=== PATIENT | male | born 1945 | race Caucasian/White ===

== ENCOUNTER 2020-12-08 23:04 | Emergency (ER) | payer MEDICARE, SELFPAY ==
--- NOTE | ~2020-12-08 | CT_ITS ---
EXAMINATION: CTA chest PE protocol DATE: 12/09/2020 00:25 INDICATION: Dyspnea with exertion TECHNIQUE: Computed tomography (CT) pulmonary angiogram of the chest was performed with 100 mL Omnipa que-350 intravenous contrast. Additional 3D reconstructions utilizing coronal maximum intensity proje ction (MIP) were performed. Automated exposure control and iterative reconstruction technique were em ployed. The dose-length product was 1125.65 mGy-cm. COMPARISON: None FINDINGS: Good contrast opacification of the pulmonary arteries. There is moderate streak artifact from dense c ontrast in the superior vena cava and right atrium. Mild scattered respiratory motion artifact. No de finite pulmonary embolism with sensitivity mildly decreased in the segmental pulmonary arteries and m ore significantly decreased in the smaller subsegmental pulmonary arteries. Elevation of right hemidi aphragm with compressive atelectasis along the basilar right middle and lower lobes. Couple calcified right apical nodules along with calcified right hilar and mediastinal lymph nodes consistent with ol d granulomatous disease. Left lung remains clear. No pneumonia, pulmonary edema, pleural effusion or pneumothorax. Heart size is normal. Postoperative change of prior median sternotomy and coronary betty ry bypass grafting. Thoracic aorta is normal in caliber with no dissection. No pathologically enlarge d thoracic lymphadenopathy. Multiple parapelvic cysts in the right kidney. There are couple low-atten uation cyst at the lower pole of the left kidney the larger measuring 2.4 cm. In addition there is an indeterminant 4.5 cm intermediate attenuation exophytic lesion at the left kidney which could repres ent either complex cyst or solid neoplasm. There is soft tissue swelling and a postoperative gas abou t the right shoulder where there is a reverse total shoulder arthroplasty reportedly placed one day p rior. Moderate thoracic spondylosis with bridging osteophytes at multiple levels consistent with diff use idiopathic skeletal hyperostosis (DISH). Bilateral old rib fractures. IMPRESSION: 1. No pulmonary embolism. Sensitivity mildly decreased the segmental pulmonary arteries and more sign ificantly decreased in some of the smaller subsegmental pulmonary arteries due to combination of stre ak and motion artifact. 2. Elevation of the right hemidiaphragm with basilar atelectasis in the right middle and lower lobes. 3. Indeterminate 4.5 cm exophytic left renal lesion statistically most likely to represent a complex proteinaceous/hemorrhagic cyst but differential would include solid neoplasm. Recommend follow-up pre and postcontrast MRI or CT for further evaluation. Reviewed, dictated and finalized at location A. EDITATION MANAGER IMPRESSION: 1. No pulmonary embolism. Sensitivity mildly decreased the segmental pulmonary arteries and more significantly decreased in some of the smaller subsegmental p ulmonary arteries due to combination of streak and motion artifact. 2. Elevation of the right hemidiaphragm with basilar atelectasis in the right m iddle and lower lobes. 3. Indeterminate 4.5 cm exophytic left renal lesion statistically most likely t o represent a complex proteinaceous/hemorrhagic cyst but differential would inc lude solid neoplasm. Recommend follow-up pre and postcontrast MRI or CT for fur ther evaluation.
--- NOTE | ~2020-12-08 | XR_ITS ---
EXAMINATION: XR chest 2V DATE: 12/09/2020 00:12 INDICATION: Shortness of breath TECHNIQUE: PA and lateral views of the chest were obtained. COMPARISON: Chest CT dated 12/09/2020 FINDINGS: Elevation of the right hemidiaphragm with right basilar atelectasis. Left lung remains clear. Calcifi ed nodules in the right upper lung zone and calcified right hilar lymph nodes consistent with old gra nulomatous disease. No pleural effusion or pneumothorax. The cardiomediastinal silhouette is normal. Median sternotomy wires and mediastinal surgical clips are seen, likely from prior coronary artery by pass grafting. Reverse right total shoulder arthroplasty. Multiple old bilateral rib fractures. IMPRESSION: 1. Elevation the right hemidiaphragm with right basilar atelectasis. Reviewed, dictated and finalized at location A. HIC ARTS TECHNICIAN
[2020-12-08 23:04] VITALS: BP 165/73; PULSE 91; RESP 18; TEMP 36.7; O2SAT 95
--- NOTE | 2020-12-08 23:09 | ECG_ITS ---
Measurements Intervals [place] Rate: 79 P: 58 OR: 140 QRS: 34 QRSD: 97 T: 30 QT: 342 QTc: 393 Interpretive Statements SINUS RHYTHM FREQUENT VENTRICULAR PREMATURE COMPLEXES NONSPECIFIC T-WAVE ABNORMALITY- INFERIOR LEADS BASELINE ARTIFACT- I, III, V3-V5 ABNORMAL ECG Electronically Signed On 12-09-2020 6:48:38 PHYSICIAN RELATIONS SPECIALIST by Brandin Vitale D.O.
[2020-12-08 23:13] VITALS: PULSE 84; RESP 20; O2SAT 97
[2020-12-08 23:15] VITALS: PULSE 89; RESP 20; O2SAT 97
[2020-12-08 23:20] VITALS: PULSE 85
[2020-12-08 23:35] LABS: Basophils Absolute Auto 0.1 K/mm3 (0.0-0.1); Basophils Percent Auto 0.4 % (0.2-1.2); Eosinophils Absolute Auto 0.2 K/mm3 (0-0.3); Eosinophils Percent Auto 1.3 % (0-4.4); Hematocrit 40.8 % (42.0-52.0); Hemoglobin 13.5 g/dL (14.0-18.0); Immature Granulocyte Absolute 0.05 K/mm3 (0.00-0.031); Immature Granulocyte Percent A 0.4 % (0-0.5); Lymphocytes Absolute Auto 1.55 K/mm3 (0.9-3.2); Lymphocytes Percent Auto 13.6 % (18.3-44.2); Mean Corpuscular HGB Conc 33.1 g/dl (32-36); Mean Corpuscular Hemoglobin 29.7 pg (26-34); Mean Corpuscular Volume 89.9 fl (80-100); Mean Platelet Volume 11.5 fl (7.4-10.4); Monocytes Absolute Auto 2.1 K/mm3 (0.1-0.6); Neutrophils Absolute Auto 7.5 K/mm3 (1.3-6.7); Neutrophils Percent Auto 66.3 % (45.5-73.1); Platelet Count Result 167 k/mm3 (150-375); Red Blood Count 4.54 M/mm3 (4.6-6.20); Red Cell Distribution Width 14.7 % (11.5-14.5); White Blood Count 11.4 K/mm3 (4.5-10.0)
[2020-12-08 23:46] LABS: Alanine Aminotransferase 18 U/L (4-50); Albumin Level 3.9 g/dL (3.5-5.1); Alkaline Phosphatase 75 U/L (38-126); Aspartate Amino Transferase 27 U/L (17-59); Bilirubin,Total 0.9 mg/dL (0.2-1.3)
[2020-12-08 23:47] LABS: Anion Gap 7 mmol/L (8-16); Blood Urea Nitrogen 18 mg/dL (9-20); Calcium 8.6 mg/dL (8.4-10.2); Carbon Dioxide 25 mmol/L (22-30); Chloride 105 mmol/L (98-107); Estimated CRCL calculation 67 ml/min; Estimated Glomerular Filt Rate > 60; Glucose 121 mg/dL (75-110); Potassium 3.9 mmol/L (3.4-5.0); Sodium 137 mmol/L (137-145)
[2020-12-09 00:51] VITALS: BP 139/70; PULSE 83; RESP 23; O2SAT 99
--- NOTE | 2020-12-09 01:33 | ED.SOB ---
HPI - SOB/Dyspnea General Chief Complaint: Shortness of Breath/Dyspnea Stated Complaint: SOB WITH EXERTION Time Seen by Provider: 12/08/20 23:19 Source: patient Limitations: no limitations History of Present Illness HPI Narrative: Patient is 75 years old white male came to the emergency room because of shortness of breath 3 to 4 hours prior to arrival to the emergency room. Patient is status post right shoulder surgery yesterday at [facility], got discharged home today at noon. 7 hours later patient had severe shortness of breath on exertion. Denies any fever, chills, chest pain. History of hypertension, hyperlipidemia, CABG 25 years ago. Currently patient is asymptomatic as long as laying down in bed. Patient denies taking any pain medication since discharge from the hospital until now. Been using Tylenol and a stool softener only. Patient denies any history of Covid or exposure to anybody known having Covid. Recent Covid test prior to surgery was negative Related Data Home Medications Medication Instructions Recorded Confirmed Dulcolax Stool Softener (dss) 12/09/20 docusate sodium [Stool Softener] 100 mg PO BID 12/09/20 oxycodone 12/09/20 oxycodone-acetaminophen 12/09/20 Allergies Allergy/AdvReac Type Severity Reaction Status Date / Time No Known Allergies Allergy Unverified 12/08/20 23:19 Review of Systems Review of Systems: Narrative: CONSTITUTIONAL: Denies fever, chills, or sweats. EYES: Denies visual changes, redness, or discharge. ENT: Denies rhinorrhea, congestion, sore throat, or otalgia. CARDIOVASCULAR: Denies chest pain, palpitations, or edema. RESPIRATORY: Denies cough or dyspnea. GASTROINTESTINAL: Denies abdominal pain, nausea, vomiting, or diarrhea. GENITOURINARY: Denies dysuria or hematuria. SKIN: Denies rash or itching. MUSCULOSKELETAL: Denies back pain, joint pain, or myalgia. NEUROLOGIC: Denies headache, numbness, or weakness. PSYCHIATRIC: Denies anxiety or depression. [facility] Past Medical History Medical History IFG (impaired fasting glucose) Right shoulder pain Surgical History Surgical History S/P total knee arthroplasty Status post total right knee replacement Social History Social History Years smoked: 7 Smoking status: Former smoker Tobacco type: cigarettes Second hand tobacco smoke exposure: No Smoking end date: 10/15/80 Alcohol intake: never Substance use: never Substance use type: does not use Gender identity (if verbalized by the patient): Male Exam Narrative: Exam Narrative: General appearance: Well-developed, well-nourished Skin: Normal color Head: Normocephalic, nontraumatic Eyes: Clear conjunctiva ENT: Oropharynx normal, ears normal, nose normal Neck: Supple, nontender Chest and respiratory: Airway patent, no respiratory distress, no accessory muscle use Heart: Regular rate/rhythm Abdomen: Soft, nontender, no organomegaly, quiet bowel sounds Vascular: Normal peripheral pulses, normal capillary refill. Musculoskeletal: Normal range of motion, nontender back Neurologic: Alert and oriented ?3, AUDIO VISUAL TECHNICIAN is normal as tested, no gross motor deficit Course Course Emergency Course: Stable Reevaluation(s) Reevaluation #1: DR GAYLE, orthopedic on-call at [facility] Accept the patient to be transferred to the ED. Do not remove the subcutaneous catheter for pain management of the shoulder. Date: 12/09/20 Time: 02:47 Reevaluation #2: DR CASTANEDA, hospitalist at [facility], accepted patient transfer. Date:
[2020-12-09 01:52] LABS: Alveolar/Arterial O2 Gradient 47.7 mmHg; Base Excess ABG -1.2 mEq/l (+/-2.0); Fractional Inspired Oxygen 21 %; HCO3 ABG 22.8 mEq/l (22.0-26.0); Oxygen Content ABG 17.5 %vol (16.0-22.0); Oxygen Saturation ABG 91.4 % (95.0-100.0); Oxyhemoglobin 90.3 % THb (90.0-100.0); PCO2 ABG 35.8 mmHg (35.0-45.0); PO2 ABG 59.2 mmHg (80.0-100.0); PO2 FiO2 Ratio Arterial Blood 2.82 %; Total Hemoglobin 13.8 g/dL (12.0-18.0); pH ABG 7.421 (7.350-7.450)
[2020-12-09 01:53] LABS: Device ROOM AIR; Modified Allen's Test Pass; Site Drawn RIGHT RADIAL
[2020-12-09 02:44] VITALS: BP 129/83; PULSE 83; RESP 20; O2SAT 94
[2020-12-09 03:17] LABS: Troponin I < 0.012 ng/mL (0.000-0.034)
== END 2020-12-09 03:41 | disposition short-term general hospital (02) ==
PROVIDERS: Emergency Medicine; Emergency Provider Emergency Medicine; PCP Family Medicine
DX: J96.01 Acute respiratory failure with hypoxia (principal); R94.31 Abnormal electrocardiogram [ECG] [EKG]; Z87.891 Personal history of nicotine dependence
CPT/HCPCS: 36415; 36600; 71046; 71275; 80048; 80076; 82805; 84484; 85025; 93005; 99285; Q9967

== ENCOUNTER 2021-02-07 08:07 | Outpatient (CLI) | payer MEDICARE, SELFPAY ==
--- NOTE | ~2021-02-07 | CT_ITS ---
EXAMINATION: CT abdomen wo/w con DATE: 02/07/2021 08:42 INDICATION: Evaluate left renal mass TECHNIQUE: Computed tomography (CT) of the abdomen and pelvis was performed without and with 100 cc O mnipaque 350 intravenous contrast. The dose-length product was 1767.96 mGy-cm. Automated exposure con trol and iterative reconstruction technique were employed. COMPARISON: CT dated 12/09/2020. FINDINGS: There are multiple nonenhancing simple and complicated cysts of the kidneys, largest measur ing 4.1 cm and the left kidney. There is a 4 mm nonobstructing right renal stone. There are small par apelvic cysts. Fatty infiltration of the liver. Status post cholecystectomy. Gallbladder is present. Small fat-conta ining umbilical hernia. There is atherosclerosis of the aorta without aneurysm. There are accessory s plenules. Only dilated pancreatic duct, although no obstructing stone or mass identified. Lung bases unremarkable. The spleen and adrenal glands are unremarkable. Nonobstructive bowel gas pat tern. No free air or free fluid. IMPRESSION: 1. Multiple simple and complicated cysts of the kidneys which are nonenhancing. 2: Nonobstructing 4 mm right renal stone. 3: Hepatic steatosis. Reviewed, dictated and finalized at location B.
[2021-02-07 08:37] LABS: Estimated Glomerular Filt Rate > 60
== END 2021-02-07 08:08 | disposition home or self-care (01) ==
PROVIDERS: PCP Family Medicine; Visit Provider Physician Assistant
DX: N20.0 Calculus of kidney (principal); K76.0 Fatty (change of) liver, not elsewhere classified; N28.1 Cyst of kidney, acquired
CPT/HCPCS: 74170; Q9967

== ENCOUNTER → 2022-05-16 11:46 | Outpatient (CLI) | payer MEDICARE, SELFPAY ==
--- NOTE | ~2022-05-16 | XR_ITS ---
XR hip RT 2V w AP pelvis DATE: 05/16/2022 12:19 INDICATION: Right hip pain TECHNIQUE: AP pelvis. AP and lateral views of right hip. COMPARISON: None FINDINGS: Prominent calcification of the iliac and femoral arteries. Prominent degenerative disc disease and included L4-5 and L5-S1. No pelvic fracture or bone destruction is detected. The pubic symphysis and sacroiliac joints are int act. No fracture or dislocation, avascular necrosis or bone destruction of the right hip. IMPRESSION: No pelvic or right hip fracture or dislocation Prominent degenerative disc disease at L4-5 and L5-S1 Reviewed, dictated and finalized at location B.
== END ==
PROVIDERS: PCP Family Medicine; Visit Provider Family Medicine
DX: M25.551 Pain in right hip (principal); M51.37 Other intervertebral disc degeneration, lumbosacral region; M51.36 Other intervertebral disc degeneration, lumbar region
CPT/HCPCS: 73502

== ENCOUNTER 2023-09-26 16:53 | Emergency (ER) | payer MEDICARE, SELFPAY ==
[2023-09-26 17:00] VITALS: BP 145/69; PULSE 67; RESP 18; TEMP 37; O2SAT 97
--- NOTE | 2023-09-26 18:40 | ED.URI ---
HPI - URI/Sore Throat General Chief Complaint: Upper Respiratory Infection Stated Complaint: Fatigue/Cough Time Seen by Provider: 09/26/23 18:40 Source: patient, RN notes reviewed and old records reviewed Mode of arrival: ambulatory Limitations: no limitations History of Present Illness HPI Narrative: 78-year-old male who presents to [facility] with complaints of dry cough, weakness, body aches, some fevers, dizziness which started last night. Patient reports that he has taken Sudafed HBP and Tylenol for his symptoms. Patient denies anynausea or vomiting or any diarrhea, denies any shortness of breath or any wheezing. MD elicited complaint: fever, cough and other (weakness, body aches,dizziness) Onset (ago): day(s) (day 2 of symptoms) Severity: moderate Treatments prior to arrival: acetaminophen and other (Sudafed HBP) Related Data Allergies Allergy/AdvReac Type Severity Reaction Status Date / Time No Known Allergies Allergy Verified 09/26/23 17:38 Review of Systems Review of Systems: CONSTITUTIONAL:Reports malaise, chills, sweats, or fever. EYES: Denies visual changes, redness, or discharge. ENT: Reports rhinorrhea, congestion,no sinus pain,no otalgia and no sore throat. CARDIOVASCULAR: Denies chest pain, palpitations, or edema. RESPIRATORY: Reports cough.? Denies dyspnea. GASTROINTESTINAL: Denies abdominal pain, nausea, vomiting, diarrhea SKIN: Denies rash or itching. MUSCULOSKELETAL: Reports myalgia. NEUROLOGIC: Denies headache.reports some dizziness All systems reviewed & are unremarkable except as noted in HPI and below PMFSH Past Medical History Medical History Hypertension Hypothyroidism, unspecified Mixed hyperlipidemia Obesity Obesity Right shoulder pain Surgical History Surgical History (Updated 09/29/23 @ 14:06 by Adriana Cabrera NP) History of coronary artery stent placement History of open heart surgery 5 vessels Hx of appendectomy S/P total knee arthroplasty Status post reverse total arthroplasty of right shoulder Status post total right knee replacement Social History Social History Social History: Years smoked: 7 Smoking status: Former smoker Tobacco type: cigarettes Second hand tobacco smoke exposure: No Smoking end date: 10/15/80 Alcohol intake: never Substance use: never Substance use type: does not use Lack of Transportation: No Lack of Food: Never True Current Housing: I Have Housing Concerned About Future Housing: No Difficulty Paying Gas/Electric Bills: No Difficulty Paying for Meds: No Currently Unemployed: YES Education: Decline to Answer Difficulty w/ Childcare or Family Care: No Living arrangements: with family Occupation/Education: retired Gender identity (if verbalized by the patient): Male Sexual Orientation (if Verbalized by the Patient): Straight or Heterosexual Comments At time of signature, agree with nursing past medical, surgical, social and family history. There is no relevant family history pertinent to the presenting complaint Exam Narrative: GENERAL: Well-appearing, well-nourished, and in no acute distress. HEAD: Normocephalic EYES: PERRLA, conjunctivae clear ENT: Nares clear, turbinates edematous and erythematous, clear discharge. Mucous membranes moist. TM pearly [place] with dull light reflex bilaterally; no tragal tenderness. Oropharynx erythematous without lesions. Tonsils not enlarged and without exudate, no drooling, no hoarseness, no trismus, uvula midline. NECK: Supple. No lymphadenopathy CHEST: Clear to auscultation, breath sounds equal. No wheezing, rhonchi, rales, or stridor. No respiratory distress, speaks in full sentences.cough dry SAO2 97% on room air HEART: Regular rate and rhythm. No murmur heard. SKIN: Warm, dry, no rash. NEURO: Alert and oriented
== END 2023-09-26 18:57 | disposition home or self-care (01) ==
PROVIDERS: Emergency Provider Registered Nurse; PCP Family Medicine
DX: J10.1 Influenza due to other identified influenza virus with other respiratory manifestations (principal); Z20.822 Contact with and (suspected) exposure to COVID-19; Z87.891 Personal history of nicotine dependence; I10 Essential (primary) hypertension; E03.9 Hypothyroidism, unspecified; E78.2 Mixed hyperlipidemia; E66.9 Obesity, unspecified; Z68.36 Body mass index [BMI] 36.0-36.9, adult; I25.10 Atherosclerotic heart disease of native coronary artery without angina pectoris; Z95.5 Presence of coronary angioplasty implant and graft; Z96.651 Presence of right artificial knee joint; Z96.611 Presence of right artificial shoulder joint
CPT/HCPCS: 87426; 87804; 99213; C9803; G0463

== ENCOUNTER 2025-09-04 06:34 | Outpatient (CLI) | payer MEDICARE, SELFPAY ==
--- NOTE | ~2025-09-04 | US_ITS ---
US abdomen limited Indication: R10.13 - Epigastric pain Comparison: None Technique: Cary-scale and color Doppler images were obtained. Findings: LIVER: Mild increased echogenicity of the liver. . The liver measures 19.4 cm. GALLBLADDER/BILIARY: Unremarkable.No cholelithiais, wall thickening or pericholecystic fluid. No biliary dilatation. CBD normal. Victoria sign negative. PANCREAS: Pancreas limited by bowel gas. Right Kidney: Right kidney 11.7 x 5.7 x 5.9 cm, simple appearing renal cyst 1.7 x 1.9 cm, no hydronephrosis. Impression: Mild hepatic steatosis. Reviewed, dictated and finalized at location P. ANGE TELLER Impression: Mild hepatic steatosis.
== END 2025-09-04 06:35 | disposition home or self-care (01) ==
PROVIDERS: PCP Family Medicine; Visit Provider Physician Assistant
DX: R10.13 Epigastric pain (principal); R74.8 Abnormal levels of other serum enzymes; K85.90 Acute pancreatitis without necrosis or infection, unspecified; K76.0 Fatty (change of) liver, not elsewhere classified
CPT/HCPCS: 76705